=== PATIENT | female | born 1990 | race Caucasian/White ===

== ENCOUNTER 2017-05-06 22:40 | Emergency (ER) | payer BC ==
[~2017-05-06] VITALS: Ht 162.6 cm; Wt 66.0 kg
[~2017-05-06 22:40] MED LIST: CEPH-443 PO; PHEN-538 PO; PREN1TAB12 PO
[2017-05-06 22:43] VITALS: Ht 162.6 cm; Wt 66.0 kg
[2017-05-06] MEDS ORDERED: ONDANSETRON 4 MG INJ IV STA (23:32)
[2017-05-06] MEDS ORDERED: SOD CHLORIDE 0.9% 1,000 ML IV STA (23:32)
[2017-05-06] MEDS ORDERED: morphine 4 MG/ML VIAL IV STA (23:32)
--- NOTE | 2017-05-06 23:59 | ERD ---
ER Documentation Chief Complaint Date/Time DATE: 05/06/17 TIME: 23:55 Chief Complaint sp fall from horse yesterday, headache, left side pain, dizziness HPI 26-year-old female presents here in emergency department for complaints of left lower back and abdominal pain, headache, dizziness, nausea vomiting, loss of consciousness after falling off worse yesterday. Patient describes pain on affected areas throbbing pain, 8/10 scale, accompanied with other symptoms mentioned. Patient denies any blurry vision. Patient had 3 vomiting episodes. Patient did not take any medications up and symptoms. Patient denies any gross hematuria. ROS All systems reviewed and are negative except as per history of present illness. Medications Home Meds Active Scripts Phenazopyridine Hcl* (Pyridium*) 200 Mg Tab, 200 MG PO TID Y for URINARY PAIN, # 6 TAB Prov:JESSICA QUEZADA PA-C 03/20/16 Cephalexin* (Keflex*) 500 Mg Capsule, 500 MG PO BID for 5 Days, CAP Prov:JESSICA QUEZADA PA-C 03/20/16 Reported Medications Vit/Fe Fumarate/Fa ( 1-1 Tablet) 1 Tab Tablet, 1 TAB PO DAILY, #1 08/24/12 Allergies Allergies: Coded Allergies: No Known Allergies (Verified Allergy, Unknown, 05/06/17) PMhx/Soc Medical and Surgical Hx: pt denies Medical Hx History of Surgery: No Anesthesia Reaction: No (PRUITIS ) Hx Neurological Disorder: Yes (HEADACHES) Hx Respiratory Disorders: No Hx Cardiac Disorders: No Hx Psychiatric Problems: No Hx Miscellaneous Medical Probl: No Hx Alcohol Use: No Hx Substance Use: No Hx Tobacco Use: No Smoking Status: Never smoker FmHx Family History: No coronary disease, No diabetes, No other Physical Exam Vitals Vital Signs Date Time Temp Pulse Resp B/P Pulse Ox O2 Delivery O2 Flow Rate FiO2 05/06/17 22:43 98.3 99 20 124/68 98 Physical Exam GENERAL: The patient is well developed and appropriate for usual state of health, in no apparent distress. CHEST: Clear to auscultation bilaterally. There are no rales, wheezes or rhonchi. HEART: Regular rate and rhythm. No murmurs, clicks, rubs or gallops. No S3 or S4. ABDOMEN: Soft,generalized tenderness noted, no ecchymosis noted, nondistended. Good bowel sounds. No rebound or guarding. No gross peritonitis. No gross organomegaly or masses. No Ayala sign or McBurney point tenderness. BACK: No midline or flank tenderness.tenderness on palpation on the left paraspinal aspect of the lumbar spine. muscle spasms noted. EXTREMITIES: Equal pulses bilaterally. There is no peripheral clubbing, cyanosis or edema. No focal swelling or erythema. Full range of motion. Grossly neurovascularly intact. NEURO: Alert and oriented. Cranial nerves 2-12 intact. Motor strength in all 4 extremities with 5/5 strength. Sensation grossly intact. Normal speech and gait. . negative Romberg sign.Negative pronator drift. Bilateral eyes are PERRL EOM intact. SKIN:3 centimeter left scalp hematoma noted. No open wounds noted. There is no apparent rash or petechia. The skin is warm and dry. HEMATOLOGIC AND LYMPHATIC: There is no evidence of excessive bruising or lymphedema. No gross cervical, axillary, or inguinal lymphadenopathy. Result Diagram: 05/07/17 0010 05/07/17 0010 Results 24 hrs Laboratory Tests Test 05/07/17 00:10 White Blood Count 8.110^3/ul Red Blood Count 3.7010^6/ul Hemoglobin 11.3g/dl Hematocrit 33.8% Mean Corpuscular Volume 91.4fl Mean Corpuscular Hemoglobin 30.5pg Mean Corpuscular Hemoglobin Concent 33.4g/dl Red Cell Distribution Width 12.0% Platelet Count 25010^3/UL Mean Platelet Volume 11.5fl Neutrophils % 53.7% Lymphocytes % 34.4% Monocytes % 9.9% Eosinophils % 1.4% Basophils % 0.2% Nucleated Red Blood Cells % 0.0/100WBC Neutrophils # 4.410^3/ul Lymphocytes # 2.810^3/ul Monocytes # 0.810^3/ul Eosinophils # 0.110^3/ul Basophils # 0.010^3/ul Nucleated Red Blood Cells # 0.010^3/ul Urine Color CODY Urine Clarity CLOUDY Urine pH 5.0 Urine Specific [place] 1.025 Urine Ketones NEGATIVEmg/dL Urine Nitrite NEGATIVEmg/dL Urine Bilirubin NEGATIVEmg/dL Urine Urobilinogen 1+mg/dL Urine Leukocyte Esterase TRACELeu/ul Urine Microscopic RBC 5/HPF Urine Microscopic WBC 12/HPF Urine Squamous Epithelial Cells FEW/HPF Urine Calcium Oxalate Crystals FEW/HPF Urine Bacteria MODERATE/HPF Urine Mucus MANY/HPF Urine Hemoglobin NEGATIVEmg/dL Urine Glucose NEGATIVEmg/dL Urine Total Protein 1+mg/dl Sodium Level 138mmol/L Potassium Level 3.6mmol/L Chloride Level 105mmol/L Carbon Dioxide Level 28mmol/L Anion Gap 9 Blood Urea Nitrogen 7mg/dl Creatinine 0.62mg/dl Glucose Level 91mg/dl Calcium Level 9.1mg/dl Total Bilirubin 0.3mg/dl Direct Bilirubin 0.00mg/dl Indirect Bilirubin 0.3mg/dl Aspartate Amino Transf (AST/SGOT) 30IU/L Alanine Aminotransferase (ALT/SGPT) 45IU/L Alkaline Phosphatase 62IU/L Total Protein 7.0g/dl Albumin 3.9g/dl Globulin 3.10g/dl Albumin/Globulin Ratio 1.25 Lipase 49U/L Current Medications Medications (Trade) Dose Ordered Sig/Reynold Route PRN Reason Start Time Stop Time Status Last Admin Dose Admin Sodium Chloride (NS) 1,000 ml @ 1,000 mls/hr Q1H STAT IV 05/06/17 23:32 05/07/17 00:31 DC 05/07/17 00:20 Morphine Sulfate (morphine) 4 mg ONCE STAT IV 05/06/17 23:32 05/06/17 23:33 DC 05/07/17 00:21 Ondansetron HCl 4 mg 4 mg ONCE STAT IV 05/06/17 23:32 05/06/17 23:33 DC 05/07/17 00:21 Sodium Chloride (NS) 100 ml @ ud STK-MED ONCE .ROUTE 05/07/17 00:38 05/07/17 00:39 DC 05/07/17 01:37 Iohexol (Omnipaque 300mg/ ml) 150 ml STK-MED ONCE .ROUTE 05/07/17 00:38 05/07/17 00:39 DC 05/07/17 01:37 Morphine Sulfate (morphine) 4 mg ONCE STAT IV 05/07/17 02:07 05/07/17 02:16 DC Patient was given medication for pain here in emergency department, after treatment, patient verbalized feeling much better. Patient's pain is improved.Patient was given Zofran here in the emergency department. After treatment, patient was able to tolerate po fluids here in the emergency department without any vomiting. There is no signs and symptoms of dehydration. Normal saline IV bolus was given here in emergency department for rehydration, patient tolerated IV fluids. PROCEDURE: Portable chest x-ray. CLINICAL INDICATION: 26 years of age, female. Abdominal pain. TECHNIQUE: Portable AP view of the chest. COMPARISON: None available. FINDINGS: Cardiomediastinal contours are normal. Lungs are clear. Negative for pleural effusion or pneumothorax. No acute bony abnormality. Limited evaluation of the upper abdomen is unremarkable. IMPRESSION: Negative for evidence of an acute chest process. RPTAT: HCTS Ted Armendariz Physician Date Time Electronically viewed and signed by Ted Armendariz Physician on 05/07/2017 02: 01 CS/ CC: CLARE GOMEZ NP PROCEDURE: CT HEAD WITHOUT CONTRAST: CLINICAL INDICATION: 26 years of age female, fall . Head injury COMPARISON: None available. TECHNIQUE: CT of the head was performed without IV contrast. Coronal and sagittal reformatted images were obtained from the axial source images. Images were reviewed on a high-resolution PACS workstation. Dose information: The estimated radiation dose (CTDI vol mGy) for each series in this exam is 45. The estimated cumulative dose (DLP mGy-cm) is 720. One or more of the following dose reduction techniques were used: - Automated exposure control. - Adjustment of the mA and/or kV according to patient size. - Use of iterative reconstruction technique. FINDINGS: Parenchyma: Negative for evidence of acute intracranial hemorrhage, mass effect or large territory infarct. Perez-white matter differentiation is maintained. Ventricles and extra-axial spaces: Appropriate for age. No abnormal extra-axial fluid collections are identified. Visualized paranasal sinuses: Clear. Mastoid air cells: Clear. Bones: No acute fractures. Additional comment: There is a left parieto-occipetal subgaleal hematoma. IMPRESSION: Negative for evidence of acute intracranial injury. Subgaleal hematoma in the left parieto-occipetal scalp without underlying fracture. RPTAT: HCTS Ted Armendariz Physician Date Time Electronically viewed and signed by Ted Armendariz Physician on 05/07/2017 02: 10 CS/ CC: CLARE GOMEZ NP PROCEDURE: CT ABDOMEN AND PELVIS WITH CONTRAST: CLINICAL INDICATION: 26-year of age, female, abdominal pain. Fall COMPARISON: None available. TECHNIQUE: CT of the abdomen and pelvis was performed following administration of 100 mL IV Omnipaque-300. Oral contrast at administered prior to the examination. Coronal and sagittal reformatted images were obtained from the axial source images. Images were reviewed on a high-resolution PACS workstation. Dose information: Based on a 32 cm phantom, the estimated radiation dose ( CTDIvol mGy for each series in this exam is 12.5. The estimated cumulative dose (DLP mGy-cm) is 720. One or more of the following dose reduction techniques were used: - Automated exposure control. - Adjustment of the mA and/or kV according to patient size. - Use of iterative reconstruction technique. FINDINGS: LUNG BASES: Normal. ABDOMEN/PELVIS: Liver: Mild periportal edema. Otherwise normal. Portal veins, splenic vein and SMV are patent. There is incomplete opacification of the hepatic veins due to timing of the contrast bolus. Gallbladder: Normal. Bile ducts: No intrahepatic or extrahepatic biliary duct dilatation. Spleen: Normal. Pancreas: Normal. Adrenal glands: Normal. Kidneys and ureters: Normal. Aorta and IVC: Aorta is normal caliber and patent. Lymph nodes: Normal. Gastrointestinal tract: Normal. Appendix: Surgically absent. There are surgical clips at the cecal pole. Bladder: Normal. Pelvic Organs: IUD in position. There is a 2 cm corpus luteum in the left ovary that has likely ruptured with discontinuous rim enhancement. Ovaries and adnexa are otherwise unremarkable. Peritoneal cavity: Trace free pelvic fluid. Abdominal wall: There is soft tissue stranding in the subcutaneous fat of the left buttock and also over the left lower flank that may represent contusion. There is dependent edema in the subcutaneous fat overlying the lumbar spine. BONES: Musculoskeletal: No acute fractures are identified in the lumbar spine, lower ribs or pelvis IMPRESSION: Suspected soft tissue contusion in the subcutaneous fat overlying the left flank and left buttock. There is nonspecific dependent edema in the subcutaneous fat overlying the lumbar spine. No other acute traumatic injury is identified in the abdomen or pelvis. 2 cm corpus luteum left ovary with evidence of rupture and small volume free pelvic fluid. IUD in good position. RPTAT: HCTS Physician Rosa Elena Date Time Electronically viewed and signed by Ted Armendariz Physician on 05/07/2017 02: 21 CS/ CC: CLARE GOMEZ [employer] ADMINISTRATOR Procedures/MDM Medical Decision Making: Symptoms despite is consistent with soft tissue contusions of affected areas.There is low suspicion for abdominal emergencies at this time. Patients abdominal exam is normal at this time. Patients radiology exam does not show any abdominal emergencies at this time. There is low suspicion for appendicitis, cholecystitis, abdominal aortic aneurysms or peritonitis at this time. There is low suspicion for sepsis. Patient appears well and is hemodynamically stable. Also had a scalp contusion with symptoms of head concussion.There is low suspicion for neurological emergencies at this time since patients neurologic exam is normal. Patient did not have any altered level consciousness, vomiting, changes in balance or memory after incident. Patients CT scan of the head does not show any neurological emergencies at this time. prescription was given for Tylenol for [id number]-ridjdkdk pain, Allen for severe pain, Flexeril for muscle spasms, is advised to rest, apply cold compresses and affected area follow with primary care doctor in 2 days for reevaluation of symptoms. Patient is advised to return to emergency department for any worsening symptoms.This case with discussed with my attending physician, Dr. Chapman, agrees with plan at this time. Dispostion: Home. Stable Disclaimer: Inadvertent spelling and grammatical errors are likely due to EHR/ dictation software use and do not reflect on the overall quality of patient care. Also, please note that the electronic time recorded on this note does not necessarily reflect the actual time of the patient encounter. Disposition: Home. Condition: Stable Prescription 1. Instructions: Patient is advised to take medications as prescribed. Patient is advised to rest, increase fluid intake and do brat diet for next 1-2 days and progress as tolerated. Patient is advised that if symptoms are worse, severe abdominal pain, uncontrolled vomiting, high fever, severe flank pain, worst signs and symptoms, to return to the emergency department immediately. Otherwise, patient can follow up with primary care doctor in 5-7 days. Disclaimer: Inadvertent spelling and grammatical errors are likely due to EHR/ dictation software use and do not reflect on the overall quality of patient care. Also, please note that the electronic time recorded on this note does not necessarily reflect the actual time of the patient encounter. Departure Diagnosis: Primary Impression: Scalp hematoma Encounter type: initial encounter Qualified Code: S00.03XA - Hematoma of scalp, initial encounter Additional Impressions: Concussion Encounter type: initial encounter Loss of consciousness presence/duration: with LOC of 30 min or less Qualified Code: S06.0X1A - Concussion with loss of consciousness of 30 minutes or less, initial encounter Back contusion Encounter type: initial encounter Laterality: left Qualified Code: S20.222A - Contusion of left side of back, initial encounter Abdominal wall contusion Encounter type: initial encounter Qualified Code: S30.1XXA - Contusion of abdominal wall, initial encounter Additional Instructions: prescription was given for Tylenol for [id number] pain, Allen for severe pain, Flexeril for muscle spasms, is advised to rest, apply cold compresses and affected area follow with primary care doctor in 2 days for reevaluation of symptoms. Patient is advised to return to emergency department for any worsening symptoms. CLARE GOMEZ NP May 06, 2017 23:59
[2017-05-07 00:30] LABS: BASOPHILS % 0.2 % (0.0-2.0); EOSINOPHILS # 0.1 10^3/ul (0.0-0.5); EOSINOPHILS % 1.4 % (0.0-7.0); HEMATOCRIT 33.8 % (37.0-47.0); HEMOGLOBIN 11.3 g/dl (12.0-16.0); LYMPHOCYTES # 2.8 10^3/ul (0.8-2.9); LYMPHOCYTES % 34.4 % (15.0-51.0); MEAN CORPUSCULAR HEMOGLOBIN 30.5 pg (29.0-33.0); MEAN CORPUSCULAR HGB CONC 33.4 g/dl (32.0-37.0); MEAN CORPUSCULAR VOLUME 91.4 fl (82.0-101.0); MEAN PLATELET VOLUME 11.5 fl (7.4-10.4); MONOCYTE # 0.8 10^3/ul (0.3-0.9); MONOCYTES % 9.9 % (0.0-11.0); NEUTROPHIL # 4.4 10^3/ul (1.6-7.5); NEUTROPHILS % 53.7 % (39.0-77.0); PLATELET COUNT 202 10^3/UL (140-415); WHITE BLOOD COUNT 8.1 10^3/ul (4.8-10.8)
[2017-05-07 00:37] LABS: ADD UMIC YES; UR ASCORBIC ACID NEGATIVE (NEGATIVE); UR BACTERIA MODERATE /HPF (NONE SEEN); UR BILIRUBIN (Dip) NEGATIVE (NEGATIVE); UR BLOOD (Dip) NEGATIVE (NEGATIVE); UR CLARITY CLOUDY (CLEAR); UR COLOR AMBER (YELLOW); UR GLUCOSE (Dip) NEGATIVE (NEGATIVE); UR KETONES (Dip) NEGATIVE (NEGATIVE); UR LEUKOCYTE ESTERASE (Dip) TRACE Leu/ul (NEGATIVE); UR MUCUS MANY /HPF (NONE SEEN); UR NITRITE (Dip) NEGATIVE (NEGATIVE); UR RBC 5 /HPF (0-5); UR SPECIFIC GRAVITY (Dip) 1.025 (1.003-1.030); UR SQUAMOUS EPITHELIAL CELL FEW /HPF (FEW); UR TOTAL PROTEIN (Dip) 1+ mg/dl (NEGATIVE); UR UROBILINOGEN (Dip) 1+ mg/dL (NEGATIVE)
[2017-05-07] MEDS ORDERED: IOHEXOL 300MG/ML 150 ML BTL ONE (00:38)
[2017-05-07] MEDS ORDERED: SOD CHLORIDE 0.9% 100 ML ONE (00:38)
[2017-05-07 00:50] LABS: ALBUMIN 3.9 g/dl (3.3-4.9); ALBUMIN/GLOBULIN RATIO 1.25; BILIRUBIN,INDIRECT 0.3 mg/dl (0-1.1); BILIRUBIN,TOTAL 0.3 mg/dl (0.2-1.3); CALCIUM 9.1 mg/dl (8.4-10.2); CREATININE 0.62 mg/dl (0.44-1.00); POTASSIUM 3.6 mmol/L (3.5-5.1)
--- NOTE | 2017-05-07 02:01 | RADRPT ---
PROCEDURE: Portable chest x-ray. CLINICAL INDICATION: 26 years of age, female. Abdominal pain. TECHNIQUE: Portable AP view of the chest. COMPARISON: None available. FINDINGS: Cardiomediastinal contours are normal. Lungs are clear. Negative for pleural effusion or pneumothorax. No acute bony abnormality. Limited evaluation of the upper abdomen is unremarkable. IMPRESSION: Negative for evidence of an acute chest process. RPTAT: HCTS Physician Rosa Elena Date Time Electronically viewed and signed by Ted Armendariz Physician on 05/07/2017 02:01 CS/
[2017-05-07] MEDS ORDERED: morphine 4 MG/ML VIAL IV STA (02:07)
--- NOTE | 2017-05-07 02:10 | RADRPT ---
PROCEDURE: CT HEAD WITHOUT CONTRAST: CLINICAL INDICATION: 26 years of age female, fall . Head injury COMPARISON: None available. TECHNIQUE: CT of the head was performed without IV contrast. Coronal and sagittal reformatted images were obtained from the axial source images. Images were reviewed on a high-resolution PACS workstat ion. Dose information: The estimated radiation dose (CTDI vol mGy) for each series in this exam is 45. Th e estimated cumulative dose (DLP mGy-cm) is 720. One or more of the following dose reduction techniques were used: - Automated exposure control. - Adjustment of the mA and/or kV according to patient size. - Use of iterative reconstruction technique. FINDINGS: Parenchyma: Negative for evidence of acute intracranial hemorrhage, mass effect or large territory i nfarct. Perez-white matter differentiation is maintained. Ventricles and extra-axial spaces: Appropriate for age. No abnormal extra-axial fluid collections ar e identified. Visualized paranasal sinuses: Clear. Mastoid air cells: Clear. Bones: No acute fractures. Additional comment: There is a left parieto-occipetal subgaleal hematoma. IMPRESSION: Negative for evidence of acute intracranial injury. Subgaleal hematoma in the left parieto-occipetal scalp without underlying fracture. RPTAT: HCTS Physician Rosa Elena Date Time Electronically viewed and signed by Physician Rosa Elena on 05/07/2017 02:10 CS/
--- NOTE | 2017-05-07 02:21 | RADRPT ---
PROCEDURE: CT ABDOMEN AND PELVIS WITH CONTRAST: CLINICAL INDICATION: 26-year of age, female, abdominal pain. Fall COMPARISON: None available. TECHNIQUE: CT of the abdomen and pelvis was performed following administration of 100 mL IV Omnipaq ue-300. Oral contrast at administered prior to the examination. Coronal and sagittal reformatted images were obtained from the axial source images. Images were revi ewed on a high-resolution PACS workstation. Dose information: Based on a 32 cm phantom, the estimated radiation dose (CTDIvol mGy for each serie s in this exam is 12.5. The estimated cumulative dose (DLP mGy-cm) is 720. One or more of the following dose reduction techniques were used: - Automated exposure control. - Adjustment of the mA and/or kV according to patient size. - Use of iterative reconstruction technique. FINDINGS: LUNG BASES: Normal. ABDOMEN/PELVIS: Liver: Mild periportal edema. Otherwise normal. Portal veins, splenic vein and SMV are patent. There is incomplete opacification of the hepatic veins due to timing of the contrast bolus. Gallbladder: Normal. Bile ducts: No intrahepatic or extrahepatic biliary duct dilatation. Spleen: Normal. Pancreas: Normal. Adrenal glands: Normal. Kidneys and ureters: Normal. Aorta and IVC: Aorta is normal caliber and patent. Lymph nodes: Normal. Gastrointestinal tract: Normal. Appendix: Surgically absent. There are surgical clips at the cecal pole. Bladder: Normal. Pelvic Organs: IUD in position. There is a 2 cm corpus luteum in the left ovary that has likely rupt ured with discontinuous rim enhancement. Ovaries and adnexa are otherwise unremarkable. Peritoneal cavity: Trace free pelvic fluid. Abdominal wall: There is soft tissue stranding in the subcutaneous fat of the left buttock and also over the left lower flank that may represent contusion. There is dependent edema in the subcutaneous fat overlying the lumbar spine. BONES: Musculoskeletal: No acute fractures are identified in the lumbar spine, lower ribs or pelvis IMPRESSION: Suspected soft tissue contusion in the subcutaneous fat overlying the left flank and left buttock. T here is nonspecific dependent edema in the subcutaneous fat overlying the lumbar spine. No other acute traumatic injury is identified in the abdomen or pelvis. 2 cm corpus luteum left ovary with evidence of rupture and small volume free pelvic fluid. IUD in go od position. RPTAT: HCTS Ted Armendariz, Physician Date Time Electronically viewed and signed by Ted Armendariz, Physician on 05/07/2017 02:21 /
[2017-05-07] MEDS ORDERED: CYCL-319 PO (02:28)
[2017-05-07] MEDS ORDERED: ACET500C5 PO (02:28)
[2017-05-07] MEDS ORDERED: HYDR-906 PO (02:28)
[2017-05-07 03:05] VITALS: BP 116/65; PULSE 77; RESP 20; TEMP 98.3
== END 2017-05-07 03:06 | disposition home or self-care (01) ==
LOC: FTE 22:40
DX: S00.03XA Contusion of scalp, initial encounter (principal); S06.0X1A Concussion with loss of consciousness of 30 minutes or less, initial encounter; S20.222A Contusion of left back wall of thorax, initial encounter; S30.1XXA Contusion of abdominal wall, initial encounter; V80.010A Animal-rider injured by fall from or being thrown from horse in noncollision accident, initial encounter
CPT/HCPCS: 36415; 70450; 71010; 74177; 80053; 81001; 83690; 85025; 96374; 96375; 96376; 99285; J2270; J2405; J7030; Q9967

== ENCOUNTER 2017-06-07 14:06 | Emergency (ER) | payer BC ==
[~2017-06-07] VITALS: Ht 157.5 cm; Wt 66.0 kg
[~2017-06-07 14:06] MED LIST changes: +ACET500C5 PO; +CYCL-319 PO; +HYDR-906 PO
[2017-06-07 14:09] VITALS: Ht 157.5 cm; Wt 66.0 kg
--- NOTE | 2017-06-07 15:29 | ERD ---
ER Documentation Chief Complaint Chief Complaint Patient here for a recheck for work clearance HPI 26-year-old female fell off a horse a month ago on her left side and presents with continuing pain and needs work clearance. The patient was evaluated and had a CT scan of the head, abdomen and pelvis that showed a subgaleal gluteal hematoma and subcutaneous swelling contusion injury on the left flank and left gluteal region. She continues to have pain when she sits that is achy, diffuse in the left flank and left buttock region. She has some low back pain as well but has not noticed any saddle anesthesia, radicular symptoms or loss of bowel bladder function. She was seen by her PCP yesterday, she was given a prescription for ibuprofen but she is wanting further imaging to reevaluate her pain. ROS All systems reviewed and are negative except as per history of present illness. Medications Home Meds Active Scripts Cyclobenzaprine Hcl* (Cyclobenzaprine Hcl*) 10 Mg Tablet, 10 MG PO TID, #15 TAB Prov:CLARE GOMEZ NP 05/07/17 Hydrocodone/Acetaminophen ([place] 5-325 Tablet) 1 Each Tablet, 1 TAB PO Q6H Y for SEVERE PAIN LEVEL 7-10, #20 TAB Prov:CLARE GOMEZ NP 05/07/17 Acetaminophen* (Tylophen*) 500 Mg Capsule, 1 CAP PO Q6H Y for PAIN AND OR ELEVATED TEMP, #20 CAP Prov:CLARE GOMEZ NP 05/07/17 Phenazopyridine Hcl* (Pyridium*) 200 Mg Tab, 200 MG PO TID Y for URINARY PAIN, # 6 TAB Prov:JESSICA QUEZADA PA-C 03/20/16 Cephalexin* (Keflex*) 500 Mg Capsule, 500 MG PO BID for 5 Days, CAP Prov:JESSICA QUEZADA PA-C 03/20/16 Reported Medications Vit/Fe Fumarate/Fa ( 1-1 Tablet) 1 Tab Tablet, 1 TAB PO DAILY, #1 08/24/12 Allergies Allergies: Coded Allergies: No Known Allergies (Verified Allergy, Unknown, 05/06/17) PMhx/Soc History of Surgery: No Anesthesia Reaction: No (PRUITIS ) Hx Neurological Disorder: Yes (HEADACHES) Hx Respiratory Disorders: No Hx Cardiac Disorders: No Hx Psychiatric Problems: No Hx Miscellaneous Medical Probl: No Hx Alcohol Use: No Hx Substance Use: No Hx Tobacco Use: No Smoking Status: Never smoker Physical Exam Vitals Vital Signs Date Time Temp Pulse Resp B/P Pulse Ox O2 Delivery O2 Flow Rate FiO2 06/07/17 14:09 98.3 99 20 119/64 99 Physical Exam General: Well-developed, well-nourished. The patient appears in no acute distress. HEENT: Head is normocephalic, atraumatic. No scleral icterus. Neck: Supple. Nontender. Lungs: Clear to auscultation. Normal air movement. Heart: Regular rate and rhythm. S1 and S2 are normal. No murmurs, gallops, or rubs. Abdomen: Soft, nontender, nondistended. Bowel sounds are normoactive. Back: Paraspinous tenderness in the left lumbar region, there is soft tissue swelling over the left gluteus. Strength to lower extremities 5 out of 5 bilaterally. Extremities: No clubbing or cyanosis. Normal pulses. Moving extremities x 4. No weakness. Neurologic: Alert and oriented 3. No focal deficits. Skin: Normal turgor. No rash or lesions. Results 24 hrs DIAGNOSTIC IMAGING REPORT Patient: MEGHANN NICOLAS : 1990 Age: 26 Sex: F MR #: [id number] DOS: 06/07/17 1439 Ordering MD: FIONA SALCEDO PA-C Location: [facility] Room/Bed: PROCEDURE: XR Pelvis CLINICAL INDICATION: Fall 1 month ago left gluteal and left flank pain TECHNIQUE: An AP radiograph was submitted. COMPARISON: None FINDINGS: Osseous structures: appear well mineralized and intact with no fracture or destructive process identified. Joint spaces: The hip joints appear unremarkable. There is no distension of either joint capsule. the sacroiliac joints appear unremarkable without significant erosions or sclerosis. Soft tissues: An IUD projects to the central pelvis. IMPRESSION: 1. An IUD projects to the central pelvis. 2. Otherwise, unremarkable pelvis. Physician Carolyn Date Time Electronically viewed and signed by Physician Carolyn on 06/07/2017 16:38 RH/ CC: FIONA SALCEDO PA-C DIAGNOSTIC IMAGING REPORT Patient: MEGHANN NICOLAS : 1990 Age: 26 Sex: F MR #: [id number] DOS: 06/07/17 1439 Ordering MD: FIONA SALCEDO PA-C Location: [facility] Room/Bed: PROCEDURE: XR lumbosacral Spine Series CLINICAL INDICATION: Fall 1 month ago, left gluteal and left flank pain TECHNIQUE: 3 standard radiographs were taken of the lumbosacral spine. COMPARISON: None FINDINGS: Alignment: the osseous elements are well aligned without evidence of subluxation. Disk spaces: the disk spaces are adequately maintained. Osseous structures: appear intact with no fracture or osseous destruction identified. there is no significant spondylosis. Joint spaces: the facet joints joints appear unremarkable. The sacroiliac joints appear normal. Soft tissues: An IUD projects to the pelvis. IMPRESSION: 1. Unremarkable three-view lumbosacral spine series. 2. An IUD projects to the pelvis. Physician Carolyn Date Time Electronically viewed and signed by Physician Carolyn on 06/07/2017 16:39 RH/ CC: FIONA SALCEDO PA-C Procedures/MDM 26-year-old female comes in with low back pain and buttock pain on the left after falling off a horse, x-rays of the lumbar spine and pelvis are negative for acute fracture, subacute fracture, dislocation. She is neurovascular intact with no signs of cauda equina, radicular symptoms. Her pain is reproduced with palpation in her swelling is over the soft tissue over the gluteus, appears to be a soft tissue contusion injury. Departure Diagnosis: Primary Impression: Contusion of pelvis Condition: Good FIONA SALCEDO PA-C Jun 07, 2017 15:29
--- NOTE | 2017-06-07 16:39 | RADRPT ---
PROCEDURE: XR Pelvis CLINICAL INDICATION: Fall 1 month ago left gluteal and left flank pain TECHNIQUE: An AP radiograph was submitted. COMPARISON: None FINDINGS: Osseous structures: appear well mineralized and intact with no fracture or destructive process iden tified. Joint spaces: The hip joints appear unremarkable. There is no distension of either joint capsule. the sacroiliac joints appear unremarkable without significant erosions or sclerosis. Soft tissues: An IUD projects to the central pelvis. IMPRESSION: 1. An IUD projects to the central pelvis. 2. Otherwise, unremarkable pelvis. Physician Carolyn Date Time Electronically viewed and signed by Physician Carolyn on 06/07/2017 16:38 /
--- NOTE | 2017-06-07 16:40 | RADRPT ---
PROCEDURE: XR lumbosacral Spine Series CLINICAL INDICATION: Fall 1 month ago, left gluteal and left flank pain TECHNIQUE: 3 standard radiographs were taken of the lumbosacral spine. COMPARISON: None FINDINGS: Alignment: the osseous elements are well aligned without evidence of subluxation. Disk spaces: the disk spaces are adequately maintained. Osseous structures: appear intact with no fracture or osseous destruction identified. there is no si gnificant spondylosis. Joint spaces: the facet joints joints appear unremarkable. The sacroiliac joints appear normal. Soft tissues: An IUD projects to the pelvis. IMPRESSION: 1. Unremarkable three-view lumbosacral spine series. 2. An IUD projects to the pelvis. Physician Carolyn Date Time Electronically viewed and signed by Yvon Valente Physician on 06/07/2017 16:39 RH/
== END 2017-06-07 17:10 | disposition home or self-care (01) ==
LOC: FTE 14:06
DX: S30.0XXA Contusion of lower back and pelvis, initial encounter (principal); R10.2 Pelvic and perineal pain; X58.XXXA Exposure to other specified factors, initial encounter; Y92.9 Unspecified place or not applicable
CPT/HCPCS: 72100; 72170

== ENCOUNTER 2017-09-14 18:28 | Emergency (ER) | END 2017-09-14 20:50 | disposition home or self-care (01) ==